=== PATIENT | female | born 1965 | race American Indian/Alaskan Native ===

== ENCOUNTER → 2018-02-07 | Day surgery (SDC) | payer MEDICARE, MEDICAID ==
[2016-11-02 18:14] VITALS: BMI 32.7
--- NOTE | 2018-02-07 10:30 | CP.SDSHP ---
Same Day Surgery H & P - History Proposed Procedure: US guided FNA of right thyroid nodule Pre-Op Diagnosis: Right thyroid nodule - Allergies Allergies: Allergies aspirin Allergy (Intermediate, Verified 03/15/16 12:12) RASH coconut Allergy (Intermediate, Verified 03/15/16 12:13) RASH ibuprofen Allergy (Intermediate, Verified 03/15/16 12:12) RASH Penicillins Allergy (Intermediate, Verified 03/15/16 12:12) RASH morphine Adverse Reaction (Severe, Verified 01/31/18 08:52) SHORTNESS OF BREATH - Physical Exam Mental Status: Alert & Oriented x3 - Impression Impression: Pt with a 1.1 cm right thyroid nodule. Plan US guided FNA. Informed consent obtained. Pt. Evaluated Today:Candidate for Anesthesia & Procedure: No - Date & Time Date: 02/07/18 Time: 10:00 Short Stay Discharge - Short Stay Discharge Admitting Diagnosis/Reason for Visit: MNG Disposition: HOME/ ROUTINE
--- NOTE | 2018-02-07 10:32 | PCM.SURG1 ---
Surgeon's Initial Post Op Note - Surgeon's Notes Surgeon: Evgeny Em MD Protocol Manager: None Type of Anesthesia: Local Pre-Operative Diagnosis: Right thyroid nodule Operative Findings: US showed a 1.1 cm complex solid right thyroid nodule Post-Operative Diagnosis: Right thyroid nodule Operation Performed: US guided FNA Specimen/Specimens Removed: 25 g FNA x 5 passes Estimated Blood Loss: EBL {In ML}: 1 Blood Products Given: N/A Drains Used: No Drains Post-Op Condition: Good Date of Surgery/Procedure: 02/07/18 Time of Surgery/Procedure: 10:30
--- NOTE | 2018-02-07 13:14 | US ---
PROCEDURE: Date of Procedure: PROCEDURE: 1. Ultrasound guided FNA of right thyroid nodule, CPT 65393 2. Ultrasound guidance for FNA, 65123 Medications: 3cc 1% Lidocaine HISTORY: Enlarged right thyroid nodule. TECHNIQUE: Following informed consent and procedure time-out, a limited ultrasound patient's neck confirmed the presence of a 1.2 cm complex right thyroid nodule which is predominantly solid. After the patient's neck was prepped and draped in the usual sterile fashion, the skin was anesthetized with 1% lidocaine. Ultrasound-guided fine needle aspiration was then performed of the dominant right thyroid nodule. A total of 5 passes were made into the nodule with 25 gauge needle under ultrasound guidance. The FNA specimen was sent for routine pathology and genetics . Post biopsy ultrasound showed no hematoma. IMPRESSION: Ultrasound-guided FNA of the dominant right thyroid nodule.
== END | disposition home or self-care (01) ==
LOC: C.SPRAD 08:24
PROVIDERS: ATTEND Radiology Vascular & Interventional Radiology
DX: E04.1 Nontoxic single thyroid nodule (principal)

== ENCOUNTER → 2018-06-26 | Outpatient (CLI) | payer MEDICARE, MEDICAID | LOC: C.CTH 10:58 ==